=== PATIENT | male | born 1975 | race Caucasian/White ===

== ENCOUNTER 2017-06-20 00:37 | Emergency (ER) | payer MEDICAID ==
[~2017-06-20] VITALS: Ht 180.3 cm; Wt 80.0 kg
[2017-06-20] MEDS ORDERED: SULF1TAB49 PO (01:19)
[2017-06-20] MEDS ORDERED: CEPH-572 PO (01:19)
[2017-06-20] MEDS ORDERED: cephalexin 500mg capsule PO ONE (01:20)
[2017-06-20] MEDS ORDERED: bacitracin 15gm ointment TP ONE (01:20)
[2017-06-20] MEDS ORDERED: sulfamethoxazole/trimethoprim DS (800/160mg) tablet PO ONE (01:20)
[2017-06-20 01:41] VITALS: BP 161/100
== END 2017-06-20 01:42 ==
LOC: ER 00:38
DX: L03.011 Cellulitis of right finger (principal); F19.10 Other psychoactive substance abuse, uncomplicated; F15.10 Other stimulant abuse, uncomplicated; Z79.899 Other long term (current) drug therapy
CPT/HCPCS: 99284

== ENCOUNTER 2017-06-24 01:08 | Emergency (ER) | payer MEDICAID ==
[~2017-06-24] VITALS: Ht 182.9 cm; Wt 85.0 kg
[~2017-06-24 01:08] MED LIST: CEPH-572 PO; SULF1TAB49 PO
[2017-06-24] MEDS ORDERED: clindamycin 150mg capsule PO ONE (01:50)
[2017-06-24] MEDS ORDERED: CLIN-80 PO (01:54)
[2017-06-24 02:35] VITALS: BP 142/94
== END 2017-06-24 02:37 | disposition home or self-care (01) ==
LOC: ER 01:08
DX: L08.9 Local infection of the skin and subcutaneous tissue, unspecified (principal); T40.2X5A Adverse effect of other opioids, initial encounter; F15.10 Other stimulant abuse, uncomplicated; Y92.9 Unspecified place or not applicable
CPT/HCPCS: 99283; A6223; A6255